=== PATIENT | female | born 1975 | race Caucasian/White ===

== ENCOUNTER 2019-08-14 20:20 | Emergency (ER) | payer OTHER ==
[~2019-08-14] VITALS: Ht 160 cm; Wt 63.5 kg
--- OUTSIDE RECORDS SUMMARY | 2019-08-14 22:02 | XMS ---
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 E.Tory. VISIT COUNT (12 MO.) 2 [facility] 2 [facility] 10 [facility] 1 [facility] TOTAL 15 NOTE: Visits indicate total known visits. ED/UCC VISIT TRACKING (12 MO.) 08/14/2019 20:21 [facility] [place] TYPE: Emergency COMPLAINT: - PAIN 08/05/2019 14:54 [facility] TYPE: Emergency DIAGNOSES: - medic 6/overdose - Scabies - Poisoning by heroin, accidental (unintentional), initial enco 08/04/2019 21:17 [facility] TYPE: Emergency 06/03/2019 08:35 [facility] TYPE: Emergency DIAGNOSES: - Delusional disorders - Other stimulant use, unspecified with intoxication, unspecifi 05/21/2019 08:45 Toole Cecil [facility] [place] TYPE: Emergency DIAGNOSES: - Cellulitis, unspecified - Other [facility]ur[facility] DIAGNOSES: - Contact with and (suspected) exposure to potentially hazardou - Cellulitis of right upper limb - hand swelling/possible contamination 01/22/2019 19:37 [facility] TYPE: Emergency DIAGNOSES: - medic 32/ingestion - Poisoning by heroin, accidental (unintentional), initial enco - medic 32/overdose - Other psychoactive substance abuse, uncomplicated 01/08/2019:41 [facility] TYPE: Emergency DIAGNOSES: - Other psychoactive substance abuse, uncomplicated - M101 43F seizure, heroin OD? Narcan 4mg given, GCS-13, no IV 12/09/2018 23:55 [facility] TYPE: Emergency DIAGNOSES: - Cutaneous abscess of right upper limb - Sepsis, unspecified organism - Infective myositis, right forearm - Other psychoactive substance use, unspecified, uncomplicated - Dermatitis, unspecified - rash since yesterday, itchy 12/05/2018 00:51 [facility] [place] TYPE: Emergency COMPLAINT: - Weakness DIAGNOSES: 1. Other disturbances of skin sensation 2. Other fatigue 3. Allergy status to other drugs, medicaments and biological sub 4. Nicotine dependence, cigarettes, uncomplicated 11/08/2018 17:40 [facility] TYPE: Emergency DIAGNOSES: - M8/ Right ankle pain and swelling - Pain in right foot 09/07/2018 15:59 [facility] [place] TYPE: Emergency DIAGNOSES: - Anxiety disorder, unspecified - suicidal 08/26/2018 17:31 [facility] TYPE: Emergency 08/24/2018 19:52 [facility] TYPE: Emergency DIAGNOSES: - abd pain, states Hx Chrons, more blood in stool than normal. 08/22/2018 16:36 [facility] [place] TYPE: Emergency COMPLAINT: - SKIN INFECTION - Rash and other nonspecific skin eruption DIAGNOSES: 1. Rash and other nonspecific skin eruption 2. Procedure and treatment not carried out due to patient leavin INPATIENT VISIT TRACKING (12 MO.) 12/09/2018 23:55 [facility] TYPE: Intermediate Care DIAGNOSES: - Sepsis, unspecified organism - Infective myositis, right forearm - Dermatitis, unspecified - Other psychoactive substance use, unspecified, uncomplicated - Cutaneous abscess of right upper limb [email or web address]
--- NOTE | 2019-08-15 11:59 | EKG ---
[facility] [address] [place] [address] Signed Normal sinus rhythm Possible Left atrial enlargement Borderline ECG No previous ECGs available Confirmed by FLOR FLORES MD ([id number]) on 08/15/2019 11:59:29 AM Electronically Signed By: FLOR FLORES MD 08/15/19 1159 PATIENT NAME: JAE PIERCE Electrocardiogram DATE OF : 77 PHYSICIAN: FLOR FLORES MD REPORT #: [id number] REPORT IS CONFIDENTIAL AND NOT TO BE RELEASED WITHOUT AUTHORIZATION
== END 2019-08-14 21:51 | disposition home or self-care (01) ==
LOC: ED 20:20
DX: S20.212A Contusion of left front wall of thorax, initial encounter (principal); S20.211A Contusion of right front wall of thorax, initial encounter; F17.200 Nicotine dependence, unspecified, uncomplicated; Z88.5 Allergy status to narcotic agent; Z88.6 Allergy status to analgesic agent; X58.XXXA Exposure to other specified factors, initial encounter
CPT/HCPCS: 71046; 96372; 99283-25; J1885